=== PATIENT | male | born 1975 | race Caucasian/White ===

== ENCOUNTER 2021-10-03 11:32 | Emergency (ER) | payer OTHER ==
[~2021-10-03] VITALS: Ht 170.2 cm; Wt 43.1 kg
[2021-10-03 12:20] LABS: BASOPHILS ABSOLUTE AUTO 0.06 K/mm3 (0.00-0.23); BASOPHILS PERCENT AUTO 1 % (0-2); EOSINOPHILS ABSOLUTE AUTO 0.09 K/mm3 (0.00-0.68); EOSINOPHILS PERCENT AUTO 1 % (0-6); Hematocrit 46.1 % (37.0-53.0); Hemoglobin 14.5 g/dL (13.5-17.5); IMMATURE GRAN ABSOLUTE AUTO 0.06 K/mm3 (0.00-0.10); IMMATURE GRAN PERCENT AUTO 1 % (0-1); LYMPHOCYTES ABSOLUTE AUTO 1.66 K/mm3 (0.84-5.20); LYMPHOCYTES PERCENT AUTO 17 % (21-46); MONOCYTES ABSOLUTE AUTO 0.52 K/mm3 (0.16-1.47); MONOCYTES PERCENT AUTO 5 % (4-13); Mean Corpuscular HGB Conc 31.5 g/dL (31.5-36.5); Mean Corpuscular Volume 89 fL (80-100); NEUTROPHILS ABSOLUTE AUTO 7.67 K/mm3 (1.96-9.15); NEUTROPHILS PERCENT AUTO 76 % (41-73); Platelet Count 343 K/mm3 (150-400); RDW Coefficient Variation 15.6 % (11.7-14.2); RDW Standard Deviation 51.7 fL (35.1-46.3); Red Blood Cell Count 5.17 M/mm3 (4.30-5.90); White Blood Cell Count 10.06 K/mm3 (4.00-11.30)
[2021-10-03 12:27] LABS: Base Excess Venous 3.1 mmol/L; Bicarbonate Venous 25.9 mmol/L (24.0-30.0); PCO2 Venous 51.8 mmHg (38-42); PO2 Venous 58.7 mmHg (38-42); pH Blood Venous 7.35 (7.34-7.37)
[2021-10-03 12:45] LABS: Albumin, Blood 3.4 g/dL (3.4-5.0); Albumin/Globulin Ratio 0.8 (0.8-1.8); Bilirubin, Total 0.4 mg/dL (0.1-1.0); Bun/Creatinine Ratio 14.3 (12.0-20.0); Calcium, Blood 9.8 mg/dL (8.5-10.1); Creatinine, Blood 0.63 mg/dL (0.60-1.20); Globulin, Blood 4.2 g/dL (2.2-4.0); Potassium, Blood 5.1 mmol/L (3.5-5.5); Total Protein, Blood 7.6 g/dL (6.4-8.2)
== END 2021-10-03 15:39 | disposition home or self-care (01) ==
LOC: ER 11:32
PROVIDERS: Physician Assistant
DX: E10.9 Type 1 diabetes mellitus without complications (principal); F12.90 Cannabis use, unspecified, uncomplicated; F17.210 Nicotine dependence, cigarettes, uncomplicated; Z91.19 Patient's noncompliance with other medical treatment and regimen
CPT/HCPCS: 80053; 82803; 82947; 85025; J2405; J7030

== ENCOUNTER 2023-10-15 17:06 | Emergency (ER) | payer MEDICAID ==
[~2023-10-15] VITALS: Ht 170.2 cm; Wt 54.4 kg
[2023-10-15] MEDS ORDERED: Lactated Ringer's 1,000 ML IV ONE (17:35)
[2023-10-15] MEDS ORDERED: BASAGLAR K100 UNIT/8 SC (18:03)
[2023-10-15] MEDS ORDERED: INSULIN LI100 UNIT/6 SC (18:04)
[2023-10-15] MEDS ORDERED: LOPERAMIDE212 PO (18:04)
[2023-10-15] MEDS ORDERED: GABA100 PO (18:04)
[2023-10-15] MEDS ORDERED: Trazodone HCl300 MG PO (18:04)
[2023-10-15] MEDS ORDERED: ERGO50000 PO (18:05)
[2023-10-15] MEDS ORDERED: Ondansetron HCl 2 MG / ML 2ML Vial IV ONE (18:05)
[2023-10-15 18:08] LABS: BASOPHILS ABSOLUTE AUTO 0.08 K/mm3 (0.00-0.23); BASOPHILS PERCENT AUTO 1 % (0-2); EOSINOPHILS PERCENT AUTO 1 % (0-6); Hematocrit 35.9 % (37.0-53.0); Hemoglobin 11.2 g/dL (13.5-17.5); IMMATURE GRAN ABSOLUTE AUTO 0.07 K/mm3 (0.00-0.10); IMMATURE GRAN PERCENT AUTO 1 % (0-1); LYMPHOCYTES ABSOLUTE AUTO 1.24 K/mm3 (0.84-5.20); LYMPHOCYTES PERCENT AUTO 9 % (21-46); MONOCYTES ABSOLUTE AUTO 0.58 K/mm3 (0.16-1.47); MONOCYTES PERCENT AUTO 4 % (4-13); Mean Corpuscular HGB 28.1 pg (26.0-34.0); Mean Corpuscular HGB Conc 31.2 g/dL (31.5-36.5); Mean Corpuscular Volume 90 fL (80-100); Mean Platelet Volume 9.2 fL (9.1-12.4); NEUTROPHILS ABSOLUTE AUTO 11.27 K/mm3 (1.96-9.15); NEUTROPHILS PERCENT AUTO 85 % (41-73); Platelet Count 364 K/mm3 (150-400); RDW Coefficient Variation 14.4 % (11.7-14.2); RDW Standard Deviation 47.8 fL (35.1-46.3); Red Blood Cell Count 3.98 M/mm3 (4.30-5.90); White Blood Cell Count 13.34 K/mm3 (4.00-11.30)
[2023-10-15 18:39] LABS: Albumin, Blood 3.4 g/dL (3.4-5.0); Albumin/Globulin Ratio 0.8 (0.8-1.8); Beta-hydroxybutyrate 14.1 mg/dL (0.2-2.8); Bilirubin, Total 0.3 mg/dL (0.1-1.0); Calcium, Blood 8.7 mg/dL (8.5-10.1); Creatinine, Blood 0.86 mg/dL (0.60-1.20); Potassium, Blood 3.6 mmol/L (3.5-5.5); Total Protein, Blood 7.4 g/dL (6.4-8.2)
[2023-10-15] MEDS ORDERED: Insulin Glargine-Yfgn 100 Unit/mL 3 ML SYR SC ONE (18:50)
[2023-10-15] MEDS ORDERED: Insulin Regular 100 Unit/ML 1ML Dose IV ONE (18:50)
[2023-10-15] MEDS ORDERED: Promethazine HCl 25 MG Tab PO ONE (20:35)
[2023-10-15 21:30] VITALS: BP 115/73
[2023-10-15] MEDS ORDERED: PROM25 PO (21:40)
[2023-10-15] MEDS ORDERED: RX Prepack 2 Tabs Ondansetron ODT 4MG UD ONE (21:40)
== END 2023-10-15 21:58 | disposition home or self-care (01) ==
LOC: ER 17:06
PROVIDERS: Emergency Medicine
DX: E10.65 Type 1 diabetes mellitus with hyperglycemia (principal); A08.4 Viral intestinal infection, unspecified; Z79.899 Other long term (current) drug therapy
CPT/HCPCS: 80053; 82010; 82800; 82947; 85025; 96361; 96374; 99285-25; A9270; J1815; J2405; J7120